=== PATIENT | male | born 1985 | race Caucasian/White ===

== ENCOUNTER 2016-07-03 14:06 | Emergency (ER) | payer OTHER ==
[2016-07-03] MEDS ORDERED: Alum-Mag Hydrox-Simethicone Susp (30 mL) PO STA (14:51)
[2016-07-03] MEDS ORDERED: Alum-Mag Hydrox-Simethicone Susp (30 mL) ONE (15:02)
[2016-07-03 15:05] LABS: BASO # 0.1 K/uL (0.0-0.2); BASO % 0.9 % (0.0-2.0); EOS # 1.3 K/uL (0.0-0.7); EOS % 16.8 % (0.0-4.0); HEMATOCRIT 44.1 % (35.0-51.0); LYMPH % 25.7 % (20.0-40.0); MEAN CELL VOLUME 91.7 fL (80.0-94.0); MEAN CORPUSCULAR HEMOGLOBIN 30.4 pg (27.0-31.0); MEAN CORPUSCULAR HGB CONC 33.1 g/dL (33.0-37.0); MEAN PLATELET VOLUME 7.6 fL (7.2-11.7); MONO # 0.8 K/uL (0.0-0.8); MONO % 10.1 % (0.0-10.0); RED CELL DISTRIBUTION WIDTH 12.4 % (11.5-14.5); WHITE BLOOD COUNT 7.6 K/uL (4.8-10.8)
[2016-07-03 15:13] LABS: CHLORIDE 93 mmol/L (98-107); SODIUM 138 mmol/L (132-148)
[2016-07-03 15:14] LABS: POTASSIUM 3.5 mmol/L (3.6-5.2)
[2016-07-03 15:15] LABS: GFR AFRICAN-AMERICAN > 60
[2016-07-03 15:16] LABS: ALB/GLOB RATIO 1.3 (1.0-2.1); ALKALINE PHOSPHATASE 74 U/L (38-126); ALT/SGPT 9 U/L (21-72); AST/SGOT 31 U/L (17-59); BILIRUBIN,TOTAL 0.5 mg/dL (0.2-1.3); BLOOD UREA NITROGEN 20 mg/dL (9-20); CALCIUM 8.7 mg/dl (8.6-10.4); CARBON DIOXIDE 27 mmol/L (22-30); GLUCOSE,RANDOM 92 mg/dL (75-110); TOTAL PROTEIN 8.3 g/dL (6.3-8.3)
--- NOTE | 2016-07-03 15:19 | C.PDOC ---
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: language barrier Onset/Duration Of Symptoms: Days (about 2 weeks) Current Symptoms Are (Timing): Still Present Severity: Moderate Location Of Pain/Discomfort: Epigastric Radiation Of Pain To:: None Quality Of Discomfort: Unable To Describe, Gas (?) Alleviating Factors: None Last Bowel Movement: Today Additional History Per: Prior Records Past Medical History Reviewed: Historical Data, Nursing Documentation, Vital Signs Vital Signs: Last Vital Signs Temp 98.1 F 07/03/16 14:12 Pulse 104 H 07/03/16 14:12 Resp 18 07/03/16 14:12 BP 146/92 H 07/03/16 14:12 Pulse Ox 100 07/03/16 15:19 - Medical History PMH: No Chronic Diseases Surgical History: Appendectomy - [facility] Procedures DIPHTHERIA TOXOID ADMIN (07/04/13) TETANUS TOXOID ADMINIST (07/04/13) Family History: States: Unknown Family Hx - Social History Hx Tobacco Use: No Hx Alcohol Use: No Hx Substance Use: No - Immunization History Hx Tetanus Toxoid Vaccination: No Hx Influenza Vaccination: No Hx Pneumococcal Vaccination: No Review Of Systems Except As Marked, All Systems Reviewed And Found Negative. Constitutional: Negative for: Fever, Weakness Cardiovascular: Negative for: Chest Pain Respiratory: Negative for: Shortness of Breath, Hemoptysis Gastrointestinal: Negative for: Vomiting, Melena, Hematochezia, Hematemesis Genitourinary: Negative for: Dysuria Musculoskeletal: Negative for: Neck Pain, Back Pain Skin: Negative for: Rash Neurological: Negative for: Weakness, Numbness, Seizures, Altered Mental Status Physical Exam - Physical Exam Appears: Non-toxic, No Acute Distress Skin: Normal Color, Warm, Dry, No Rash Head: Atraumatic, Normacephalic Eye(s): bilateral: PERRL, EOMI Neck: Normal ROM, Supple Cardiovascular: Rhythm Regular Respiratory: Normal Breath Sounds, No Accessory Muscle Use Gastrointestinal/Abdominal: Soft, No Tenderness, No Distention, No Guarding, No Rebound Back: No CVA Tenderness Extremity: Normal ROM, No Pedal Edema, No Calf Tenderness Neurological/Psych: Oriented x3, Normal Motor, Normal Sensation ED Course And Treatment - Laboratory Results Result Diagrams: 07/03/16 15:02 07/03/16 15:02 Lab Interpretation: No Acute Changes O2 Sat by Pulse Oximetry: 100 Pulse Ox Interpretation: Normal Progress - Interventions Interventions:: Observation - Medications Administered Oral: Antacid Intravenous: H-2 suzanne - Data Reviewed Data Reviewed: Lab, Old records - Patient Status Patient status: Mostly improved - Continuity of Care Discussed patient case with:: Patient, ED Nurse - Patient Plan Patient Plan: Discharge, F/U with PCP Disposition Counseled Patient/Family Regarding: Studies Performed, Diagnosis, Need For Followup, Rx Given - Disposition Referrals: [facility] [Outside] Disposition: HOME/ ROUTINE Disposition Time: 15:35 Condition: IMPROVED Additional Instructions: Follow up in the clinic within 1-2 weeks for further evaluation and treatment. Return to the ER if you develop vomiting, fever, pain, bloody or black stools, worsening of symptoms or if you have any other concerns. Prescriptions: Famotidine [Pepcid] 20 mg PO BID #30 tab Instructions: Chronic Indigestion (ED) Print Language: NEPALI - Clinical Impression Clinical Impression: Dyspepsia
[2016-07-03 15:21] LABS: RBC URINE 2 /hpf (0-3); URINE BILIRUBIN NEGATIVE (NEGATIVE); URINE BLOOD NEGATIVE (NEGATIVE); URINE COLOR Amber (YELLOW); URINE GLUCOSE (UA) NORMAL (Normal); URINE KETONE TRACE mg/dL (NEGATIVE); URINE LEUKOCYTE ESTERASE NEG Leu/uL (Negative); URINE PROTEIN NEGATIVE (NEGATIVE); URINE UROBILINOGEN NORMAL mg/dL (0.2-1.0); WBC URINE 3 /hpf (0-5)
[2016-07-03 15:44] VITALS: BP 139/87; PULSE 98; RESP 17; TEMP 98.4; O2SAT 99
== END 2016-07-03 16:01 | disposition home or self-care (01) ==
LOC: C.ER 14:06
DX: R10.13 Epigastric pain (principal)

== ENCOUNTER 2016-09-18 14:18 | Emergency (ER) | payer OTHER ==
[2016-09-18 14:34] VITALS: O2SAT 100
[2016-09-18] MEDS ORDERED: Sodium Chloride 0.9% 1,000 ML IV ONE (14:53)
[2016-09-18] MEDS ORDERED: Alum-Mag Hydrox-Simethicone Susp (30 mL) PO STA (14:54)
--- NOTE | 2016-09-18 14:57 | C.PDOC ---
History Of Present Illness Patient is a 31 year old male with a Hx of gastritis who presents to the ER with a complaint of epigastric and LUQ pain for the past 2 days. Patient goes to the [facility]. Denies vomiting, fever, chills or diarrhea. Time Seen by Provider: 09/18/16 14:43 Chief Complaint (Nursing): Abdominal Pain History Per: Patient History/Exam Limitations: no limitations Onset/Duration Of Symptoms: Days (2) Current Symptoms Are (Timing): Still Present Location Of Pain/Discomfort: Epigastric, LUQ Radiation Of Pain To:: None Quality Of Discomfort: Unable To Describe Associated Symptoms: denies: Fever, Chills, Nausea, Vomiting Exacerbating Factors: None Alleviating Factors: None Recent travel outside of the [place]: No Past Medical History Reviewed: Historical Data, Nursing Documentation, Vital Signs Vital Signs: Last Vital Signs Temp 98.2 F 09/18/16 17:14 Pulse 62 09/18/16 17:14 Resp 17 09/18/16 17:14 BP 101/63 09/18/16 17:14 Pulse Ox 100 09/18/16 17:14 - Medical History PMH: No Chronic Diseases Surgical History: Appendectomy - [facility] Procedures DIPHTHERIA TOXOID ADMIN (07/04/13) TETANUS TOXOID ADMINIST (07/04/13) Family History: States: Unknown Family Hx - Social History Hx Tobacco Use: No Hx Alcohol Use: No Hx Substance Use: No - Immunization History Hx Tetanus Toxoid Vaccination: No Hx Influenza Vaccination: No Hx Pneumococcal Vaccination: No Review Of Systems Except As Marked, All Systems Reviewed And Found Negative. Constitutional: Negative for: Fever, Chills Gastrointestinal: Positive for: Abdominal Pain (Epigastric/LUQ). Negative for: Nausea, Vomiting Physical Exam - Physical Exam Appears: Non-toxic Skin: Normal Color, Warm, Dry Head: Atraumatic, Normacephalic Oral Mucosa: Moist Chest: Symmetrical, No Tenderness Cardiovascular: Rhythm Regular, No Murmur Respiratory: Normal Breath Sounds, No Rales, No Rhonchi, No Wheezing Gastrointestinal/Abdominal: Soft, Tenderness (Upper abdomen, mainly epigastric/ LUQ) Neurological/Psych: Oriented x3, Normal Speech, Normal Cognition ED Course And Treatment - Laboratory Results Result Diagrams: 09/18/16 15:15 09/18/16 15:15 Lab Interpretation: Normal O2 Sat by Pulse Oximetry: 100 (Room air) Pulse Ox Interpretation: Normal Progress Note: Blood work and urinalysis ordered. Maalox, pepcid and IV fluids administered. On re-evaluation feeling better, abdomen soft in no distress Reassessment Condition: Improved Disposition Counseled Patient/Family Regarding: Studies Performed, Diagnosis, Need For Followup, Rx Given - Disposition Referrals: [facility] [Outside] [facility] [Outside] Disposition: HOME/ ROUTINE Disposition Time: 17:10 Condition: STABLE Prescriptions: Famotidine [Pepcid AC] 10 mg PO BID #20 tablet Instructions: Gastritis (ED), Abdominal Pain (ED) Print Language: GIBRALTARIAN - POA Present On Arrival: None - Clinical Impression Clinical Impression: Abdominal pain, Dyspepsia, Gastritis - Scribe Statement The provider has reviewed the documentation as recorded by the Scribtamia Lopez All medical record entries made by the Loreleiibtamia were at my direction and personally dictated by me. I have reviewed the chart and agree that the record accurately reflects my personal performance of the history, physical exam, medical decision making, and the department course for this patient. I have also personally directed, reviewed, and agree with the discharge instructions and disposition.
[2016-09-18] MEDS ORDERED: Sodium Chloride 0.9% 1,000 ML ONE (14:58)
[2016-09-18] MEDS ORDERED: Aluminum Hydroxide/Magnesium Hydroxide Susp (30 mL) ONE (14:58)
[2016-09-18 15:32] LABS: BASO # 0.1 K/uL (0.0-0.2); BASO % 1.1 % (0.0-2.0); EOS # 1.1 K/uL (0.0-0.7); EOS % 20.9 % (0.0-4.0); LYMPH # 1.7 K/uL (1.0-4.3); LYMPH % 32.4 % (20.0-40.0); MEAN CELL VOLUME 92.6 fL (80.0-94.0); MEAN CORPUSCULAR HEMOGLOBIN 30.7 pg (27.0-31.0); MEAN CORPUSCULAR HGB CONC 33.1 g/dL (33.0-37.0); MEAN PLATELET VOLUME 7.4 fL (7.2-11.7); MONO # 0.3 K/uL (0.0-0.8); MONO % 5.7 % (0.0-10.0); NRBC % 0.1 % (0.0-2.0); PLATELET COUNT 292 K/uL (130-400); RED CELL DISTRIBUTION WIDTH 12.7 % (11.5-14.5); WHITE BLOOD COUNT 5.2 K/uL (4.8-10.8)
[2016-09-18 15:49] LABS: EOSINOPHIL 16 % (0-4); NEUTROPHIL 47 % (50-75); TOTAL CELLS COUNTED 100
[2016-09-18 15:54] LABS: RBC URINE < 1 /hpf (0-3); URINE BILIRUBIN NEGATIVE (NEGATIVE); URINE BLOOD NEGATIVE (NEGATIVE); URINE COLOR Yellow (YELLOW); URINE GLUCOSE (UA) NORMAL (Normal); URINE KETONE TRACE mg/dL (NEGATIVE); URINE LEUKOCYTE ESTERASE NEG Leu/uL (Negative); URINE PROTEIN 1+ mg/dL (NEGATIVE); URINE UROBILINOGEN NORMAL mg/dL (0.2-1.0); WBC URINE 1 /hpf (0-5)
[2016-09-18 15:57] LABS: URINE BACTERIA RARE (<OCC)
[2016-09-18 16:58] LABS: CHLORIDE 106 mmol/L (98-107)
[2016-09-18 16:59] LABS: POTASSIUM 3.8 mmol/L (3.6-5.2); SODIUM 141 mmol/L (132-148)
[2016-09-18 17:01] LABS: ALB/GLOB RATIO 1.2 (1.0-2.1); ALKALINE PHOSPHATASE 71 U/L (38-126); AST/SGOT 32 U/L (17-59); BILIRUBIN,TOTAL 0.8 mg/dL (0.2-1.3); BLOOD UREA NITROGEN 17 mg/dL (9-20); CARBON DIOXIDE 25 mmol/L (22-30); GFR AFRICAN-AMERICAN > 60; TOTAL PROTEIN 7.3 g/dL (6.3-8.3)
[2016-09-18 17:02] LABS: ALT/SGPT 7 U/L (21-72); CALCIUM 9.1 mg/dl (8.6-10.4); GLUCOSE,RANDOM 82 mg/dL (75-110)
[2016-09-18 17:14] VITALS: BP 101/63; PULSE 62; RESP 17; TEMP 98.2
== END 2016-09-18 17:39 | disposition home or self-care (01) ==
LOC: C.ER 14:18
DX: K29.70 Gastritis, unspecified, without bleeding (principal); R10.13 Epigastric pain
CPT/HCPCS: 80053; 81001; 83690; 85025; 96374; 99284; J7040

== ENCOUNTER 2017-03-15 16:21 | Emergency (ER) | payer OTHER ==
[2017-03-15 16:21] VITALS: BMI 19.6
[2017-03-15 16:42] VITALS: BP 132/77; PULSE 84; RESP 18; TEMP 97.5; O2SAT 96
--- NOTE | 2017-03-15 17:10 | C.PDOC ---
History Of Present Illness 31 y/o male presents to ED with complaints of abdominal cramping for 6 months with associated "bubbling" in stomach and passing a lot of gas. Patient has multiple prior visit to ED for same symptoms, currently on acid grain buyer with no improvement and states he has GI appointment tomorrow. Patient also complains of left lower back pain secondary to heavy lifting yesterday at work. Patient denies fever, chills, nausea, vomiting, bowel/bladder incontinence or any other complaints at this time. Time Seen by Provider: 03/15/17 16:56 Chief Complaint (Nursing): Abdominal Pain History Per: Patient History/Exam Limitations: no limitations Onset/Duration Of Symptoms: Days Current Symptoms Are (Timing): Still Present Past Medical History Reviewed: Historical Data, Nursing Documentation, Vital Signs Vital Signs: Last Vital Signs Temp 97.5 F L 03/15/17 16:38 Pulse 84 03/15/17 16:38 Resp 18 03/15/17 16:38 BP 132/77 03/15/17 16:38 Pulse Ox 96 03/15/17 18:11 - Medical History PMH: No Chronic Diseases Surgical History: Appendectomy - [facility] Procedures DIPHTHERIA TOXOID ADMIN (07/04/13) TETANUS TOXOID ADMINIST (07/04/13) Family History: States: No Known Family Hx - Social History Hx Tobacco Use: No Hx Alcohol Use: No Hx Substance Use: No - Immunization History Hx Tetanus Toxoid Vaccination: No Hx Influenza Vaccination: No Hx Pneumococcal Vaccination: No Review Of Systems Constitutional: Negative for: Fever, Chills Gastrointestinal: Positive for: Abdominal Pain. Negative for: Nausea, Vomiting Genitourinary: Negative for: Dysuria, Incontinence Musculoskeletal: Positive for: Back Pain Skin: Negative for: Rash Neurological: Negative for: Weakness, Numbness Physical Exam - Physical Exam Additional Physical Exam Comments: Constitutional: No acute distress. WDWN. Head: Normocephalic. Atraumatic. Eyes: PERRL. EOMI. ENT: Moist mucous membranes. Neck: Supple. Cardiovascular: Regular rate and rhythm. Chest: No tenderness. Respiratory: Clear to auscultation bilaterally. GI: Soft. Nontender. Nondistended. Normoactive bowel sounds. No rebound. No guarding. Back: Left lumbar tenderness. No midline tenderness Musculoskeletal: No tenderness or swelling of extremities. Skin: No rash. Neurologic: Alert, no focal deficit. ms and sensation intact. ED Course And Treatment O2 Sat by Pulse Oximetry: 96 (RA) Pulse Ox Interpretation: Normal Medical Decision Making Medical Decision Making: Plan: Tylenol ordered Patient does not want Tylenol because he states he has "gas" Maalox was ordered 602 pm pt to be discharged; nsaids not given for back pain due to patient's chronic abdominal pain, pt to f/u with gi tomorrow. Disposition Counseled Patient/Family Regarding: Diagnosis, Need For Followup - Disposition Referrals: [facility] [Outside] Disposition: HOME/ ROUTINE Disposition Time: 18:03 Condition: STABLE Additional Instructions: Por favor, dianne un seguimiento con el gastroenterlogo el da de maana segn lo programado. Evite los alimentos que causan gases hai frijoles, brcoli, coliflor. Evite levantar objetos pesados; randell Tylenol para el dolor en la espalda.Please follow up with rx specialist tomorrow as scheduled. Avoid foods that cause gas like beans, broccoli, cauliflower. Avoid heavy lifting; take Tylenol for pain in your back. Instructions: Simethicone (By mouth), Acute Low Back Pain (ED) Forms: Gen Discharge Inst English, [employer] (English) Print Language: POLISH - Clinical Impression Clinical Impression: Dyspepsia, Lumbar strain - PA / CHECKER/STOCKER / Resident Statement MD/DO has reviewed & agrees with the documentation as recorded. - Scribe Statement The provider has reviewed the documentation as recorded by the Natalia Muller All medical record entries made by the Loreleiibtamia were at my direction and personally dictated by me. I have reviewed the chart and agree that the record accurately reflects my personal performance of the history, physical exam, medical decision making, and the department course for this patient. I have also personally directed, reviewed, and agree with the discharge instructions and disposition.
[2017-03-15] MEDS ORDERED: Aluminum Hydroxide/Magnesium Hydroxide Susp (30 mL) PO STA (17:45)
[2017-03-15] MEDS ORDERED: Aluminum Hydroxide/Magnesium Hydroxide Susp (30 mL) ONE (17:46)
== END 2017-03-15 18:45 | disposition home or self-care (01) ==
LOC: C.ER 16:21
DX: S39.012A Strain of muscle, fascia and tendon of lower back, initial encounter (principal); X50.0XXA Overexertion from strenuous movement or load, initial encounter; Y99.0 Civilian activity done for income or pay

== ENCOUNTER 2017-04-21 01:49 | Emergency (ER) | payer OTHER ==
[2017-04-21 01:49] VITALS: BMI 19.6
--- NOTE | 2017-04-21 02:28 | C.PDOC ---
History Of Present Illness patient complaining of rlq abdominal pain, bloating. No f/c/n/v. Dull cramping discomfort. tolerating po Time Seen by Provider: 04/21/17 02:28 Chief Complaint (Nursing): Abdominal Pain History Per: Patient History/Exam Limitations: no limitations Onset/Duration Of Symptoms: Days (30) Current Symptoms Are (Timing): Still Present Context: Other Severity: Moderate Pain Scale Rating Of: 4 Location Of Pain/Discomfort: Diffuse Radiation Of Pain To:: None Quality Of Discomfort: Dull, Cramping Associated Symptoms: Vomiting. denies: Fever, Chills, Nausea Exacerbating Factors: None Alleviating Factors: None Last Bowel Movement: Yesterday Recent travel outside of the [place]: No Additional History Per: Patient Past Medical History Reviewed: Historical Data, Nursing Documentation, Vital Signs Vital Signs: Last Vital Signs Temp 98.7 F 04/21/17 03:59 Pulse 60 04/21/17 03:59 Resp 14 04/21/17 03:59 BP 103/64 04/21/17 03:59 Pulse Ox 99 04/21/17 03:59 - Medical History PMH: Denies: Chronic Kidney Disease Surgical History: Appendectomy - [facility] Procedures DIPHTHERIA TOXOID ADMIN (07/04/13) TETANUS TOXOID ADMINIST (07/04/13) Family History: States: No Known Family Hx - Social History Hx Tobacco Use: No Hx Alcohol Use: No Hx Substance Use: No - Immunization History Hx Tetanus Toxoid Vaccination: No Hx Influenza Vaccination: No Hx Pneumococcal Vaccination: No Review Of Systems Constitutional: Negative for: Fever, Chills Eyes: Negative for: Redness Cardiovascular: Negative for: Chest Pain Respiratory: Negative for: Shortness of Breath Gastrointestinal: Positive for: Abdominal Pain. Negative for: Nausea Genitourinary: Negative for: Dysuria Musculoskeletal: Negative for: Back Pain Skin: Negative for: Rash Neurological: Negative for: Weakness Psych: Negative for: Anxiety Physical Exam - Physical Exam Appears: Non-toxic, No Acute Distress Skin: Warm, Dry Head: Normacephalic Eye(s): bilateral: Normal Inspection Oral Mucosa: Moist Neck: Supple Chest: Symmetrical Cardiovascular: Rhythm Regular Respiratory: No Rales, No Rhonchi, No Wheezing Gastrointestinal/Abdominal: Bowel Sounds (tympanic to percussion), Soft, Tenderness (mild), No Distention, No Guarding, No Rebound Back: No CVA Tenderness Extremity: Normal ROM Extremity: Bilateral: Atraumatic Neurological/Psych: Oriented x3 Gait: Steady ED Course And Treatment - Laboratory Results Result Diagrams: 04/21/17 03:09 04/21/17 03:09 O2 Sat by Pulse Oximetry: 100 Pulse Ox Interpretation: Normal Reevaluation Time: 04:55 Reassessment Condition: Improved Disposition Counseled Patient/Family Regarding: Studies Performed, Diagnosis, Need For Followup, Rx Given - Disposition Referrals: [facility] [Outside] [facility] [Outside] Disposition: HOME/ ROUTINE Disposition Time: 02:28 Condition: FAIR Additional Instructions: Please return if symptoms recur Prescriptions: Polyethylene Glycol 3350 [Miralax] 17 gm PO DAILY #270 ml Instructions: Abdominal Pain (ED), Gas and Bloating (ED), Constipation (DC) Forms: [facility] (Divehi) Print Language: MONTSERRATIAN - Clinical Impression Clinical Impression: Abdominal bloating, Constipation
[2017-04-21 02:38] LABS: SQUAMOUS EPITHIAL < 1 /hpf (0-5); URINE BILIRUBIN NEGATIVE (NEGATIVE); URINE BLOOD NEGATIVE (NEGATIVE); URINE CLARITY Clear (Clear); URINE COLOR Yellow (YELLOW); URINE GLUCOSE (UA) NORMAL (Normal); URINE LEUKOCYTE ESTERASE NEG Leu/uL (Negative); URINE NITRATE NEGATIVE (NEGATIVE); URINE PROTEIN NEGATIVE (NEGATIVE)
[2017-04-21] MEDS ORDERED: Lactated Ringer's 1,000 ML IV STA (02:40)
[2017-04-21] MEDS ORDERED: Lactated Ringer's 1,000 ML ONE (02:57)
[2017-04-21 03:12] LABS: BASO # 0.1 K/uL (0.0-0.2); EOS # 0.7 K/uL (0.0-0.7); EOS % 13.3 % (0.0-4.0); HEMOGLOBIN 15.1 g/dL (12.0-18.0); LYMPH # 2.3 K/uL (1.0-4.3); LYMPH % 46.3 % (20.0-40.0); MEAN CELL VOLUME 92.7 fL (80.0-94.0); MEAN CORPUSCULAR HEMOGLOBIN 32.5 pg (27.0-31.0); MEAN PLATELET VOLUME 7.7 fL (7.2-11.7); MONO # 0.3 K/uL (0.0-0.8); MONO % 5.5 % (0.0-10.0); NEUT # 1.7 K/uL (1.8-7.0); NEUT % 33.9 % (50.0-75.0); NRBC % 0.1 % (0.0-2.0); RBC 4.65 Mil/uL (4.40-5.90); RED CELL DISTRIBUTION WIDTH 12.9 % (11.5-14.5)
[2017-04-21 03:23] LABS: ALBUMIN 4.6 g/dL (3.5-5.0); CALCIUM 9.4 mg/dl (8.6-10.4); GFR AFRICAN-AMERICAN > 60; GFR NON-AFRICAN AMERICAN > 60; LIPASE 47 U/L (23-300)
[2017-04-21 03:25] LABS: ALB/GLOB RATIO 1.2 (1.0-2.1); ALT/SGPT 10 U/L (21-72); AST/SGOT 34 U/L (17-59); BLOOD UREA NITROGEN 11 mg/dL (9-20)
--- NOTE | 2017-04-21 04:36 | CT ---
EXAM: CT Abdomen and Pelvis Without Intravenous Contrast CLINICAL HISTORY: 32 years old, male; Pain; Abdominal pain; Prior surgery; Surgery type: Appendectomy; Patient HX: 12-08-16; Additional info: Rlq pain TECHNIQUE: Axial computed tomography images of the abdomen and pelvis without intravenous contrast. All CT scans at this facility use one or more dose reduction techniques, viz.: automated exposure control; ma/kV adjustment per patient size (including targeted exams where dose is matched to indication; i.e. head); or iterative reconstruction technique. 603 images are submitted. Coronal and sagittal reformatted images were created and reviewed. COMPARISON: CT - ABD PELVIS PO IV CONTRAST 2016-12-08 10:05 FINDINGS: Artifacts: Limited due to motion and misregistration artifacts. Lower thorax: No acute findings. ABDOMEN:Limitations: Absence of IV contrast decreases sensitivity for detecting vascular and visceral injury and abnormality. Liver: Unremarkable. Gallbladder and bile ducts: Contracted gallbladder. Pancreas: Unremarkable. No ductal dilation. Spleen: Unremarkable. No splenomegaly. Adrenals: Unremarkable. No mass. Kidneys and ureters: Unremarkable. No obstructing stones. No hydronephrosis. Stomach and bowel: Large amount of stool in the colon. Correlation with patient's clinical history of constipation is recommended. Diverticulosis. There is stool like appearance to the distal small bowel. This may represent slow transit. No mucosal thickening. Appendix: Appendectomy. PELVIS: Bladder: Partially decompressed bladder with bladder wall thickening measuring 1.2 cm.Correlation with urinalysis is recommended only if clinical cystitis is suspected. Reproductive: Unremarkable. ABDOMEN and PELVIS: Intraperitoneal space: Unremarkable. No free air. No significant fluid collection. Bones/joints: No acute fracture. No dislocation. Soft tissues: Unremarkable. Vasculature: Pelvic phleboliths. No abdominal aortic aneurysm. Lymph nodes: Unremarkable. No enlarged lymph nodes. IMPRESSION: 1. Partially decompressed bladder with bladder wall thickening measuring 1.2 cm.Correlation with urinalysis is recommended only if clinical cystitis is suspected. 2. Large amount of stool in the colon. Correlation with patient's clinical history of constipation is recommended.
[2017-04-21] MEDS ORDERED: Magnesium Citrate Oral SOL (300 ml) PO ONE (05:00)
[2017-04-21] MEDS ORDERED: Magnesium Citrate Oral SOL (300 ml) ONE (05:04)
[2017-04-21 05:13] VITALS: BP 109/67; PULSE 58; RESP 18; TEMP 97.9; O2SAT 98
== END 2017-04-21 05:18 | disposition home or self-care (01) ==
LOC: C.ER 01:49
DX: K59.00 Constipation, unspecified (principal); R14.0 Abdominal distension (gaseous)
CPT/HCPCS: 74176; 80053; 81001; 83690; 85025; 96361; 96374; 96375; 99284; J1885; J7120

== ENCOUNTER 2017-07-05 00:56 | Emergency (ER) | payer OTHER ==
[2017-07-05 00:57] VITALS: BMI 19.6
[2017-07-05 01:08] VITALS: RESP 20; O2SAT 100
--- NOTE | 2017-07-05 02:13 | C.PDOC ---
History Of Present Illness 32 year old male presents to the ED complaining of 8 month history of throat pain, upper abdominal pain, and occasional nausea. States he has been evaluated in the ER multiple times and given different antacids and pain meds without relief. Patient has tried to make appointments for the clinic but has been unable to set up appointment. He reports headache from worrying about his problem. He states everyone keeps telling him its different things. He has been to other hospitals for same complaint. He denies any fever, chills, vomiting, diarrhea, recent travel, weight loss. Time Seen by Provider: 07/05/17 01:27 Chief Complaint (Nursing): ENT Problem History Per: Patient History/Exam Limitations: no limitations Onset/Duration Of Symptoms: Days Current Symptoms Are (Timing): Still Present Past Medical History Reviewed: Historical Data, Nursing Documentation, Vital Signs Vital Signs: Last Vital Signs Temp 98.4 F 07/05/17 02:45 Pulse 67 07/05/17 02:45 Resp 20 07/05/17 02:45 BP 107/66 07/05/17 02:45 Pulse Ox 100 07/05/17 04:13 - Medical History PMH: No Chronic Diseases Denies: Chronic Kidney Disease Surgical History: Appendectomy - [facility] Procedures DIPHTHERIA TOXOID ADMIN (07/04/13) TETANUS TOXOID ADMINIST (07/04/13) Family History: States: Unknown Family Hx - Social History Hx Tobacco Use: No Hx Alcohol Use: No Hx Substance Use: No - Immunization History Hx Tetanus Toxoid Vaccination: No Hx Influenza Vaccination: No Hx Pneumococcal Vaccination: No Review Of Systems Constitutional: Negative for: Fever ENT: Positive for: Throat Pain Gastrointestinal: Positive for: Nausea, Abdominal Pain. Negative for: Vomiting , Diarrhea Physical Exam - Physical Exam Appears: Well, Non-toxic, No Acute Distress Skin: Warm, Dry, No Rash Head: Atraumatic, Normacephalic, No Tenderness Eye(s): bilateral: Normal Inspection, PERRL, EOMI Ear(s): Bilateral: Normal Nose: Normal, No Flaring, No Discharge Oral Mucosa: Moist Throat: No Erythema, No Exudate, Other (post-nasal irritation to the posterior oropharynx) Neck: Normal ROM, Supple, Other (no nodules to thyroid) Lymphatic: Normal Exam, No Adenopathy Chest: Symmetrical Cardiovascular: Rhythm Regular, No Murmur Respiratory: Normal Breath Sounds, No Rales, No Rhonchi, No Wheezing Gastrointestinal/Abdominal: Bowel Sounds (active), Soft, No Tenderness, No Distention, No Guarding, No Rebound Back: Normal Inspection, No Vertebral Tenderness Extremity: Bilateral: Atraumatic, Normal Color And Temperature, Normal ROM Neurological/Psych: Oriented x3, Normal Speech, No Other (focal deficits) Gait: Steady ED Course And Treatment O2 Sat by Pulse Oximetry: 100 (RA) Pulse Ox Interpretation: Normal Medical Decision Making Medical Decision Making: impression: throat and abdominal pain, likely esophageal or gastric related. Exam not impressive Prior records reviewed: Patient seen multiple times in the ED for similar presentation with negative work-ups, including negative H. pylori. Most recent CT scan was 04/21/17. Patient instructed to follow up outpatient, but has not. Discussed with patient at length the importance of following up in the clinic and with GI specialist for further work-up. There is no clinical indication for labwork at this time and he has had prior CT abd/pelvis and US. Patient will be discharged home with Carafate prescription. Disposition Counseled Patient/Family Regarding: Diagnosis, Need For Followup, Rx Given - Disposition Referrals: [facility] [Outside] [facility] [Outside] [facility] [Outside] Disposition: HOME/ ROUTINE Disposition Time: 02:13 Condition: STABLE Additional Instructions: you need to see supervisor porcelain department for further testing of your symptoms Take carafate daily and stop other medications If you are unable to get hold of clinic, go in person to make appointment try gift officer service to help necesita osiris a un gastroenterlogo para realizar ms pruebas de zoe sntomas [place] carafate diariamente y suspenda otros medicamentos Si no puede hacerse cargo de la clnica, vaya en persona para programar enzo letty prueba el servicio de conserjera para ayudar Prescriptions: Sucralfate [Carafate] 1 gm PO DAILY #14 tablet Instructions: Gastritis (DC) Forms: [employer] (Kinyarwanda) Print Language: SLOVENIAN - POA Present On Arrival: None - Clinical Impression Clinical Impression: Gastritis, Anxiety about health - PA / MANAGING CONSULTANT CLINICAL PROFESSOR / Resident Statement MD/DO has reviewed & agrees with the documentation as recorded. - Scribe Statement The provider has reviewed the documentation as recorded by the Scribe (Kathleen Santiago) All medical record entries made by the Scribe were at my direction and personally dictated by me. I have reviewed the chart and agree that the record accurately reflects my personal performance of the history, physical exam, medical decision making, and the department course for this patient. I have also personally directed, reviewed, and agree with the discharge instructions and disposition.
[2017-07-05 02:46] VITALS: BP 107/66; PULSE 67; TEMP 98.4
== END 2017-07-05 02:46 | disposition home or self-care (01) ==
LOC: C.ER 00:56
DX: K29.70 Gastritis, unspecified, without bleeding (principal); F41.9 Anxiety disorder, unspecified

== ENCOUNTER 2017-09-09 09:14 | Day surgery (SDC) | payer OTHER ==
[2017-07-29 10:57] VITALS: BMI 19.5
[2017-09-09] MEDS ORDERED: Lactated Ringer's 1,000 ML IV ONE (11:56)
[2017-09-09] MEDS ORDERED: Propofol 10 mg/ml Inj (20 ML) ONE (12:03)
[2017-09-09 12:31] VITALS: TEMP 98
[2017-09-09 12:58] VITALS: PULSE 55; O2SAT 100
[2017-09-09 13:15] VITALS: BP 95/59; RESP 15
--- NOTE | 2017-09-10 19:58 | CARD ---
APPROVED REPORT EKG Measurement Heart [id number] <Conclusion> Normal sinus rhythm Normal ECG
== END 2017-09-09 16:05 | disposition home or self-care (01) ==
LOC: C.ENDO 09:14
PROVIDERS: ATTEND Internal Medicine Gastroenterology
DX: R10.13 Epigastric pain (principal); K29.70 Gastritis, unspecified, without bleeding
CPT/HCPCS: 43239; 88305; 88313; 88342; 93005; J2704; J7120

== ENCOUNTER 2018-03-27 15:09 | Emergency (ER) | payer SELFPAY ==
[2018-03-27 15:09] VITALS: BMI 19.5
[2018-03-27 15:18] VITALS: BP 131/96; PULSE 89; RESP 20; TEMP 98.6; O2SAT 98
--- NOTE | 2018-03-27 16:10 | C.PDOC ---
History Of Present Illness 32 year old male presents to the emergency department with complaints of abdominal pain for 1 week, associated with constipation for 2 days. Patient states that he has been having abdominal pain for 8 months to a year, usually within his lower abdomen intermittently, as well as in his epigastric region. Patient states that he has been evaluated at [facility] and in the clinic a few times, with tests done at every visit but "no one can tell him what's wrong with him". Patient reports pain despite using medications. Time Seen by Provider: 03/27/18 15:19 Chief Complaint (Nursing): GI Problem History Per: Patient History/Exam Limitations: no limitations Onset/Duration Of Symptoms: Other (8 months-year) Current Symptoms Are (Timing): Still Present Location Of Pain/Discomfort: Epigastric, Other (lower abdomen) Quality Of Discomfort: "Pain" Associated Symptoms: Constipation Past Medical History Reviewed: Historical Data, Nursing Documentation, Vital Signs Vital Signs: Last Vital Signs Temp 98.6 F 03/27/18 15:14 Pulse 89 03/27/18 15:14 Resp 20 03/27/18 15:14 BP 131/96 H 03/27/18 15:14 Pulse Ox 98 03/27/18 15:14 - Medical History PMH: Gastritis Denies: Chronic Kidney Disease Surgical History: Appendectomy - [facility] Procedures DIPHTHERIA TOXOID ADMIN (07/04/13) TETANUS TOXOID ADMINIST (07/04/13) Family History: States: No Known Family Hx - Social History Hx Tobacco Use: No Hx Alcohol Use: No Hx Substance Use: No - Immunization History Hx Tetanus Toxoid Vaccination: No Hx Influenza Vaccination: No Hx Pneumococcal Vaccination: No Review Of Systems Constitutional: Negative for: Fever, Chills Gastrointestinal: Positive for: Abdominal Pain, Constipation. Negative for: Nausea, Vomiting Physical Exam - Physical Exam Appears: Well, Non-toxic, No Acute Distress Skin: Normal Color, Warm, Dry, No Rash Head: Atraumatic, Normacephalic Eye(s): bilateral: Normal Inspection, PERRL, EOMI Oral Mucosa: Moist Neck: Normal ROM Chest: Symmetrical, No Tenderness Cardiovascular: Rhythm Regular, No Murmur Respiratory: Normal Breath Sounds, No Rales, No Rhonchi, No Wheezing Gastrointestinal/Abdominal: Bowel Sounds, Soft, Tenderness (mild to bilateral lower quadrants ), No Mass, No Distention, No Guarding, No Rebound Male Genital: Normal Inspection, No Scrotal Swelling, Other (Irrigation Technician: Jese Johnson RN. NO hernia, no penile discharge. ) Extremity: Bilateral: Atraumatic, Normal Color And Temperature, Normal ROM Neurological/Psych: Oriented x3, Normal Speech Gait: Steady ED Course And Treatment O2 Sat by Pulse Oximetry: 98 (RA) Pulse Ox Interpretation: Normal Medical Decision Making Medical Decision Making: Plan: XR Abdomen (Flat Plate) XRay viewed by me and shows normal gas pattern and moderate fecal retention. Patient advised on dietary changes and to follow up with GI and in the clinic Disposition Counseled Patient/Family Regarding: Diagnosis, Need For Followup, Rx Given - Disposition Referrals: [facility] [Outside] [facility] [Outside] Disposition: HOME/ ROUTINE Disposition Time: 16:25 Condition: GOOD Additional Instructions: Seguimiento en la clnica para mayor atencin. 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 - Scribe Statement The provider has reviewed the documentation as recorded by the Scribe (Kalia Pride) All medical record entries made by the Scribe were at my direction and personally dictated by me. I have reviewed the chart and agree that the record accurately reflects my personal performance of the history, physical exam, medical decision making, and the department course for this patient. I have also personally directed, reviewed, and agree with the discharge instructions and disposition.
--- NOTE | 2018-03-27 18:45 | RAD ---
Date of service: 03/27/2018 HISTORY: abd pain, constipation COMPARISON: CT abdomen pelvis with contrast performed 07/14/17 FINDINGS: BOWEL: Nonobstructive bowel gas pattern. Moderate to severe constipation. No definite free air. BONES: No acute osseous abnormality is detected. OTHER FINDINGS: None. IMPRESSION: Moderate to severe constipation.
== END 2018-03-27 16:28 | disposition home or self-care (01) ==
LOC: C.ER 15:09
DX: K59.00 Constipation, unspecified (principal); R10.9 Unspecified abdominal pain

== ENCOUNTER 2018-05-26 22:49 | Emergency (ER) | payer SELFPAY ==
[2018-05-26 22:49] VITALS: BMI 19.5
[2018-05-26] MEDS ORDERED: Tdap Vaccine 0.5 ml Vial (10-64 yrs) IM ONE (23:15)
[2018-05-26] MEDS ORDERED: Tetanus/Diphtheria Toxoids 0.5 ml Syringe IM ONE (23:51)
[2018-05-27] MEDS ORDERED: Tdap Vaccine 0.5 ml Vial (10-64 yrs) IM ONE (00:01)
--- NOTE | 2018-05-27 00:45 | C.PDOC ---
History Of Present Illness 33 year old male presents to the emergency department with complaints of left foot pain after stepping on a bobo nail at work yesterday. Patient states that the nail went through his boot, piercing the plantar aspect of his foot. Patient states that he is not UTD with his tetanus vaccination. Time Seen by Provider: 05/26/18 23:05 Chief Complaint (Nursing): Lower Extremity Problem/Injury History Per: Patient History/Exam Limitations: no limitations Onset/Duration Of Symptoms: Days (1) Current Symptoms Are (Timing): Still Present - Ankle/Foot Description Of Injury: Other (pierced with bobo nail) Past Medical History Reviewed: Historical Data, Nursing Documentation, Vital Signs Vital Signs: Last Vital Signs Temp 98.2 F 05/26/18 22:53 Pulse 80 05/26/18 22:53 Resp 16 05/26/18 22:53 BP 126/81 05/26/18 22:53 Pulse Ox 99 05/26/18 22:53 - Medical History PMH: Gastritis Denies: Chronic Kidney Disease Surgical History: Appendectomy - [facility] Procedures DIPHTHERIA TOXOID ADMIN (07/04/13) TETANUS TOXOID ADMINIST (07/04/13) Family History: States: No Known Family Hx - Social History Hx Tobacco Use: No Hx Alcohol Use: No Hx Substance Use: No - Immunization History Hx Tetanus Toxoid Vaccination: No (not up to date as of 05/26/18) Hx Influenza Vaccination: No Hx Pneumococcal Vaccination: No Review Of Systems Except As Marked, All Systems Reviewed And Found Negative. Constitutional: Negative for: Fever, Chills Cardiovascular: Negative for: Chest Pain Respiratory: Negative for: Cough, Shortness of Breath Musculoskeletal: Positive for: Foot Pain (left foot) Physical Exam - Physical Exam Appears: Non-toxic, No Acute Distress Skin: Normal Color, Warm, Dry Head: Atraumatic, Normacephalic Eye(s): bilateral: Normal Inspection, PERRL, EOMI Nose: Normal Chest: Symmetrical, No Tenderness Cardiovascular: Rhythm Regular, No Murmur Respiratory: Normal Breath Sounds, No Rales, No Rhonchi, No Wheezing Extremity: Normal ROM, Other (puncture wound to the plantar aspect of the left foot) Pulses: Left Dorsalis Pedis: Normal, Right Dorsalis Pedis: Normal Neurological/Psych: Oriented x3, Normal Speech, Normal Cognition, Normal Motor, Normal Sensation, Other (no focal deficit) ED Course And Treatment O2 Sat by Pulse Oximetry: 99 (RA) Pulse Ox Interpretation: Normal Progress Note: Plan: Adacel 0.5ml IM. Cipro 500mg PO. Motrin 600mg PO Disposition - Disposition Referrals: [facility] [Outside] Disposition: HOME/ ROUTINE Disposition Time: 00:45 Condition: STABLE Additional Instructions: Follow up in Clinic within 2-3 days. Return to ED immediately if feels worse. 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 - Scribe Statement The provider has reviewed the documentation as recorded by the Scribe (Kalia Pride) All medical record entries made by the Scribe were at my direction and personally dictated by me. I have reviewed the chart and agree that the record accurately reflects my personal performance of the history, physical exam, medical decision making, and the department course for this patient. I have also personally directed, reviewed, and agree with the discharge instructions and disposition.
[2018-05-27 01:26] VITALS: BP 126/84; PULSE 68; RESP 18; TEMP 97.6
[2018-05-27 05:01] VITALS: O2SAT 99
== END 2018-05-27 01:27 | disposition home or self-care (01) ==
LOC: C.ER 22:49
DX: S91.332A Puncture wound without foreign body, left foot, initial encounter (principal); W45.0XXA Nail entering through skin, initial encounter; Y99.0 Civilian activity done for income or pay; Z23 Encounter for immunization